=== PATIENT | male | born 1980 | race African-American/Black ===

== ENCOUNTER 2020-12-12 14:32 | Emergency (ER) | payer OTHER | END 2020-12-12 15:52 | disposition home or self-care (01) | LOC: ERS 14:32 | DX: S31.11 Laceration without foreign body of abdominal wall without penetration into peritoneal cavity (principal); I10 Essential (primary) hypertension ==

== ENCOUNTER 2021-09-09 14:31 | Emergency (ER) | payer OTHER | END 2021-09-09 15:29 | disposition left against medical advice (07) | LOC: ERS 14:31 | DX: Z53.21 Procedure and treatment not carried out due to patient leaving prior to being seen by health care provider (principal) ==